=== PATIENT | female | born 1950 | race African-American/Black ===

== ENCOUNTER 2017-02-07 03:47 | Emergency (ER) | payer MEDICARE, OTHER ==
[~2017-02-07] VITALS: Ht 167.6 cm; Wt 81.6 kg
[~2017-02-07 03:47] MED LIST: ALBUTEROL SULF8.5 GM INH; ASPIRIN EC325 MG ORAL; ASPIRIN ORAL; AZITHROMYCIN250 MG ORAL; CAL MAG ZINC +1 EACH PO; CIPROFLOXACIN500 M2 ORAL; COREG12.5 MG ORAL; CYCLOBENZAPRINE10 MG ORAL; IBUPROFEN200 MG ORAL; IBUPROFEN600 MG ORAL; LISINOPRIL10 MG ORAL; OSCAL D500 MG GT; PREDNISONE20 MG ORAL; ROBITUSSIN DM5 ML ORAL; SIMVASTATIN20 MG ORAL; TRAMADOL HCL50 MG ORAL; ZOFRAN4 MG ORAL
[2017-02-07 04:05] VITALS: BP 171/66
[2017-02-07] MEDS ORDERED: HYDROmorphone 1 MG in NS 55 ML IV ONE (04:15)
[2017-02-07 04:47] LABS: KETONES,URINE NEGATIVE (NEGATIVE); LEUKOCYTE ESTERASE ,URINE 1+ (NEGATIVE); NITRITE,URINE NEGATIVE (NEGATIVE); PH,URINE 7 (4.5-8.0); PROTEIN,URINE 2+ (NEGATIVE); UROBILINOGEN,URINE NORMAL MG/DL (0.0-1.0)
[2017-02-07 04:56] LABS: BASOPHILS % (AUTO) 0.7 % (0.0-2.0); EOSINOPHILS % (AUTO) 0.9 % (0.0-3.0); LYMPHOCYTES % (AUTO) 19.6 % (20.0-45.0); MEAN CORPUSCULAR HEMOGLOBIN 31.4 PG (27.0-31.0); MEAN CORPUSCULAR HGB CONC 32.2 G/DL (32.0-36.0); MEAN CORPUSCULAR VOLUME 98 FL (80-99); MONOCYTES % (AUTO) 6.2 % (1.0-10.0); NEUTROPHILS % (AUTO) 72.5 % (45.0-75.0); PLATELET COUNT 262 K/UL (150-450); RED BLOOD COUNT 5.01 M/UL (4.20-5.40); RED CELL DISTRIBUTION WIDTH 12.7 % (11.6-14.8); WHITE BLOOD COUNT 9.8 K/UL (4.8-10.8)
[2017-02-07 05:00] VITALS: BP 160/57
[2017-02-07 05:01] LABS: APPEARANCE,URINE SLIGHTLY CLOUDY
[2017-02-07 05:02] LABS: BACTERIA,URINE FEW /HPF
[2017-02-07 05:03] LABS: AMORPHOUS SEDIMENT,UR FEW /LPF
[2017-02-07 05:18] LABS: ALBUMIN/GLOBULIN RATIO 1.2 (1.0-2.7); CALCIUM 9.9 mg/dL (8.6-10.2); CREATININE 1.3 mg/dL (0.5-0.9); GLOMERULAR FILTRATION RATE 50.1 mL/min (>60); TOTAL PROTEIN 7.9 g/dL (6.6-8.7)
[2017-02-07] MEDS ORDERED: ZOFRAN ODT4 MG ORAL (05:28)
--- NOTE | 2017-02-07 05:29 | Emergency Room Report ---
History of Present Illness General Chief Complaint: Nausea, Vomiting, and Diarrhea Source: Patient, EMS Present Illness HPI This is a 66-year-old female with no significant past medical history. She presents with chief complaint of vomiting. She get occasional vomiting which only lasts for an hour or so. They get better. This occurred couple days ago. This morning she woke up with vomiting and able to stop. Also some diarrhea. Denies any fever chills denies any abdominal pain. Nothing made it better. Unable to keep anything down. Allergies: Coded Allergies: CODEINE (Unverified Allergy, Unknown, 05/19/16) MORPHINE (Verified Allergy, Unknown, 05/19/16) PENICILLINS (Unverified Allergy, Unknown, 05/19/16) Uncoded Allergies: CODEIN (Allergy, Unknown, 05/19/16) PENACILLIN (Allergy, Unknown, 05/19/16) PENCILLIN (Allergy, Unknown, 02/07/17) Patient History Past Medical History: see triage record, old chart reviewed Past Surgical History: other Pertinent Family History: none Social History: Reports: drug use - Marijuana Now: No Immunizations: other Reviewed Nursing Documentation: PMH: Agreed, PSxH: Agreed Nursing Documentation-PMH Past Medical History: No History, Except For Hx Cardiac Problems: Yes - CAD Hx Hypertension: Yes Hx COPD: Yes Hx Cancer: No Hx Gastrointestinal Problems: No Hx Neurological Problems: No Review of Systems Eye: Denies: blurred vision, eye pain ENT: Denies: ear pain, nose congestion, throat swelling Respiratory: Denies: cough, shortness of breath Cardiovascular: Denies: chest pain, palpitations Gastrointestinal: Reports: diarrhea, nausea, vomiting, Denies: abdominal pain Musculoskeletal: Denies: back pain, joint pain Skin: Denies: rash Neurological: Denies: headache, numbness Endocrine: Denies: increased thirst, increased urine Hematologic/Lymphatic: Denies: easy bruising All Other Systems: negative except mentioned in HPI Physical Exam Vital Signs Date Time Temp Pulse Resp B/P Pulse Ox O2 Delivery O2 Flow Rate FiO2 02/07/17 03:39 96.8 77 16 149/60 98 Room Air vitals unremarkable Sp02 EP Interpretation: reviewed, normal General Appearance: well appearing, no apparent distress, alert Head: normocephalic, atraumatic Eyes: bilateral eye EOMI, bilateral eye PERRL ENT: hearing grossly normal, normal pharynx Neck: full range of motion, supple, no meningismus Respiratory: chest non-tender, lungs clear, normal breath sounds Cardiovascular #1: regular rate, rhythm, no murmur Gastrointestinal: normal bowel sounds, non tender, no mass, no organomegaly, no bruit, non-distended Musculoskeletal: back normal, gait/station normal, normal range of motion Neurologic: alert, oriented x3, responsive Psychiatric: mood/affect normal Skin: warm/dry Medical Decision Making Diagnostic Impression: Primary Impression: Nausea, vomiting, and diarrhea ER Course She presents with acute vomiting and diarrhea. She felt much better now. Able to keep things down. We'll discharge home. 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 No evidence of obstruction. No evidence of acute abdomen. Lab Results Impression labs unremarkable Last Vital Signs Date Time Temp Pulse Resp B/P Pulse Ox O2 Delivery O2 Flow Rate FiO2 02/07/17 05:00 60 17 160/57 100 Room Air 02/07/17 03:39 96.8 Status: improved Disposition: HOME, SELF-CARE Condition: Stable Scripts Ondansetron Odt* (ZOFRAN ODT*) 4 Mg Tab.rapdis 4 MG ORAL Q6H Y for Nausea & Vomiting, #15 TAB 0 Refills Prov: ROSARIO TAVARES M.D. 02/07/17 Referrals: NON PHYSICIAN (PCP) Patient Instructions: DIET, Vomiting or Diarrhea [6yr-Adult] Additional Instructions: Followup with your Dr. in 2 to 3 days. Return if worse. ROSARIO TAVARES M.D. Feb 07, 2017 05:29
[2017-02-07 05:40] VITALS: BP 137/50
== END 2017-02-07 06:00 | disposition home or self-care (01) ==
LOC: EDBD 03:47 → EMR 04:00
DX: R11.2 Nausea with vomiting, unspecified (principal); R19.7 Diarrhea, unspecified; Z88.6 Allergy status to analgesic agent; Z88.0 Allergy status to penicillin; F15.90 Other stimulant use, unspecified, uncomplicated; I10 Essential (primary) hypertension; J44.9 Chronic obstructive pulmonary disease, unspecified; I25.10 Atherosclerotic heart disease of native coronary artery without angina pectoris
CPT/HCPCS: 36415; 80053; 80300; 81003; 83690; 85025; 96374; 96375; 99284; J2405

== ENCOUNTER 2017-06-08 11:35 | Emergency (ER) | payer MEDICARE, OTHER ==
[~2017-06-08] VITALS: Ht 165.1 cm; Wt 77.1 kg
[~2017-06-08 11:35] MED LIST changes: +ZOFRAN ODT4 MG ORAL
[2017-06-08 12:33] LABS: APPEARANCE,URINE CLEAR; KETONES,URINE NEGATIVE (NEGATIVE); LEUKOCYTE ESTERASE ,URINE 2+ (NEGATIVE); NITRITE,URINE NEGATIVE (NEGATIVE); PH,URINE 7 (4.5-8.0); PROTEIN,URINE NEGATIVE (NEGATIVE); UROBILINOGEN,URINE NORMAL MG/DL (0.0-1.0)
[2017-06-08 12:49] LABS: BACTERIA,URINE FEW /HPF; SQUAMOUS EPITHELIAL CELL,UR FEW /LPF (NONE/OCC)
[2017-06-08] MEDS ORDERED: CEPHALEXIN500 MG ORAL (13:13)
[2017-06-08] MEDS ORDERED: PHENAZOPYRIDIN100 MG ORAL (13:13)
[2017-06-08 13:20] VITALS: BP 158/71
--- NOTE | 2017-06-08 15:08 | Emergency Room Report ---
History of Present Illness General Chief Complaint: Female Urogenital Problems Present Illness HPI The patient is a 67-year-old female presenting for increasing or frequency, dysuria, and back pain which began yesterday. She states that she frequently gets UTIs and this feels the same. Pain is a 5/10 burning sensation to the vaginal region with urination. She denies any vaginal discharge, hematuria, fever, chills Allergies: Coded Allergies: CODEINE (Unverified Allergy, Unknown, 05/19/16) MORPHINE (Verified Allergy, Unknown, 05/19/16) PENICILLINS (Unverified Allergy, Unknown, 05/19/16) Patient History Past Medical History: see triage record Pertinent Family History: none Now: No Reviewed Nursing Documentation: PMH: Agreed, PSxH: Agreed Nursing Documentation-PMH Hx Cardiac Problems: Yes - CAD Hx Hypertension: Yes Hx COPD: Yes Hx Cancer: No Hx Gastrointestinal Problems: No Hx Neurological Problems: No Review of Systems All Other Systems: negative except mentioned in HPI Physical Exam Vital Signs Date Time Temp Pulse Resp B/P Pulse Ox O2 Delivery O2 Flow Rate FiO2 06/08/17 11:58 97.3 52 16 173/80 98 Room Air Sp02 EP Interpretation: reviewed, normal General Appearance: no apparent distress, alert, GCS 15, non-toxic Head: normocephalic, atraumatic Eyes: bilateral eye PERRL, bilateral eye normal inspection ENT: hearing grossly normal, normal pharynx, no angioedema, normal voice Neck: full range of motion, supple/symm/no masses Gastrointestinal: soft, no mass, no guarding, tenderness - suprapubic Musculoskeletal: back normal, gait/station normal, normal range of motion, non- tender Neurologic: alert, oriented x3, responsive, motor strength/tone normal, sensory intact, speech normal Psychiatric: judgement/insight normal, memory normal, mood/affect normal, no suicidal/homicidal ideation Skin: normal color, no rash, warm/dry, well hydrated Medical Decision Making PA Attestation Dr. Talavera is my supervising physician. Patient management was discussed with my supervising physician Diagnostic Impression: Primary Impression: Pyelonephritis ER Course The patient is a 67-year-old female presenting for UTI symptoms Differential diagnosis considered but not limited to: UTI, BV, yeast infection, pyelonephritis, PID, among others PE: afebrile. NAD. Abdomen: Normal appearance. Non distended. No ecchymosis. Normal BS. TTP over suprapubic region only. No McBurney point tenderness. No guarding. No CVA tenderness Urinalysis is consistent with urinary tract infection The patient discharged home with a prescription for keflex and is given ER precautions. Laboratory Tests Test 06/08/17 12:20 Urine Color Pale yellow Urine Appearance Clear Urine pH 7 (4.5-8.0) Urine Specific [place] 1.010 (1.005-1.035) Urine Protein Negative (NEGATIVE) Urine Glucose (UA) Negative (NEGATIVE) Urine Ketones Negative (NEGATIVE) Urine Occult Blood Negative (NEGATIVE) Urine Nitrite Negative (NEGATIVE) Urine Bilirubin Negative (NEGATIVE) Urine Urobilinogen Normal MG/DL (0.0-1.0) Urine Leukocyte Esterase 2+ (NEGATIVE) H Urine RBC 2-4 /HPF (0 - 2) H Urine WBC 5-10 /HPF (0 - 2) H Urine Squamous Epithelial Cells Few /LPF (NONE/OCC) Urine Bacteria Few /HPF (NONE) Lab Results Impression WBC and LE with few bacteria Last Vital Signs Date Time Temp Pulse Resp B/P Pulse Ox O2 Delivery O2 Flow Rate FiO2 06/08/17 13:20 97.6 60 16 158/71 98 Room Air Status: improved Disposition: HOME, SELF-CARE Condition: Improved Scripts Cephalexin* (KEFLEX*) 500 Mg Capsule 500 MG ORAL EVERY 6 HOURS, #28 CAP Prov: JOSÉ LUIS SOSA P.A. 06/08/17 Phenazopyridine Hcl* (PYRIDIUM*) 100 Mg Tablet 100 MG ORAL THREE TIMES A DAY, #6 TAB Prov: JOSÉ LUIS SOSA P.A. 06/08/17 Patient Instructions: Urinary Tract Infection Additional Instructions: I discussed my findings with the patient. All questions and concerns have been answered. Treatment and medication compliance have been addressed. I advised the patient that they need to follow up with PMD in 3-5 days. Return to ED if symptoms worsen, new symptoms arise, or if needed for any reason. Patient verbalized understanding of discharge instructions. JOSÉ LUIS SOSA Jun 08, 2017 15:08
== END 2017-06-08 13:20 | disposition home or self-care (01) ==
LOC: EMR 12:20
DX: N12 Tubulo-interstitial nephritis, not specified as acute or chronic (principal); I25.10 Atherosclerotic heart disease of native coronary artery without angina pectoris; I10 Essential (primary) hypertension; J44.9 Chronic obstructive pulmonary disease, unspecified
CPT/HCPCS: 81003; 99284

== ENCOUNTER 2017-08-27 09:26 | Emergency (ER) | payer MEDICARE, OTHER ==
[~2017-08-27] VITALS: Ht 162.6 cm; Wt 75.3 kg
[~2017-08-27 09:26] MED LIST changes: +CEPHALEXIN500 MG ORAL; +PHENAZOPYRIDIN100 MG ORAL
[2017-08-27] MEDS ORDERED: VITAMIN E400 UNI5 PO (09:36)
--- NOTE | 2017-08-27 09:54 | Emergency Room Report ---
History of Present Illness General Chief Complaint: General Complaint Source: Patient Present Illness HPI Patient presents with complaints of nausea Symptoms started yesterday she reports decreased oral intake yesterday she developed a mild headache denies any chest pain or shortness of breath patient complains of chills denies any diarrhea She reports spending time outside in the garden 3 days ago for an extended period time Patient saw her marine engineering consultant 2 days ago Was doing well at that time and now presents with complaints of chills Allergies: Coded Allergies: CODEINE (Unverified Allergy, Unknown, 05/19/16) MORPHINE (Verified Allergy, Unknown, 05/19/16) PENICILLINS (Unverified Allergy, Unknown, 05/19/16) Patient History Past Medical History: see triage record Pertinent Family History: none Reviewed Nursing Documentation: PMH: Agreed, PSxH: Agreed Nursing Documentation-PMH Past Medical History: No History, Except For Hx Cardiac Problems: Yes - CAD Hx Hypertension: Yes Hx Pacemaker: No Hx Asthma: No Hx COPD: Yes Hx Diabetes: No Hx Cancer: No Hx Gastrointestinal Problems: No Hx Dialysis: No History Of Psychiatric Problem: No Hx Neurological Problems: No Hx Cerebrovascular Accident: No Hx Seizures: No Review of Systems All Other Systems: negative except mentioned in HPI Physical Exam Vital Signs Date Time Temp Pulse Resp B/P (MAP) Pulse Ox O2 Delivery O2 Flow Rate FiO2 08/27/17 09:32 98.1 74 16 158/83 98 Room Air Sp02 EP Interpretation: reviewed, normal General Appearance: well appearing, no apparent distress Head: normocephalic, atraumatic Eyes: bilateral eye PERRL, bilateral eye EOMI ENT: hearing grossly normal, normal pharynx, TMs + canals normal, uvula midline Neck: full range of motion, supple, no meningismus, no bony tend Respiratory: lungs clear, normal breath sounds, no rhonchi, no respiratory distress, no retraction, no accessory muscle use Cardiovascular #1: normal peripheral pulses, regular rate, rhythm, no edema, no gallop, no JVD, no murmur Gastrointestinal: normal bowel sounds, non tender, soft, no mass, no organomegaly, non-distended, no guarding, no hernia, no pulsatile mass, no rebound Genitourinary: no CVA tenderness Musculoskeletal: normal inspection Neurologic: oriented x3, responsive, development officer III-XII nml as tested, motor strength/ tone normal, sensory intact Psychiatric: mood/affect normal Skin: normal color, no rash, warm/dry, palpation normal Lymphatic: normal inspection, no adenopathy Medical Decision Making Diagnostic Impression: Primary Impression: Vomiting Additional Impression: Diarrhea ER Course With the history exam and presentation, multiple differentials considered, including but not limited to appendicitis, gastritis, cholecystitis, diverticulitis Infectious pathology also entertained Patient although is has a very benign medical evaluation abdomen is soft patient was provided with anti-emetic oral medication I did not feel the patient met criteria for further IV examination And will have close initial outpatient followup Last Vital Signs Date Time Temp Pulse Resp B/P (MAP) Pulse Ox O2 Delivery O2 Flow Rate FiO2 08/27/17 09:32 98.1 74 16 158/83 98 Room Air Status: improved Disposition: HOME, SELF-CARE Condition: Improved Scripts Ondansetron Odt* (ZOFRAN ODT*) 4 Mg Tab.rapdis 4 MG ORAL Q6H Y for Nausea & Vomiting, #20 TAB 0 Refills Prov: SUSAN MORENO D.O. 08/27/17 Referrals: NOT CHOSEN IPA/MD,REFERRING (PCP) Additional Instructions: Patient is provided with the discharge instructions notified to follow up with primary doctor in the next 2-3 days otherwise return to the er with any worsening symptoms. Please note that this report is being documented using [employer] technology. This can lead to erroneous entry secondary to incorrect interpretation by the dictating instrument. SUSAN MORENO D.O. Aug 27, 2017 09:54
--- NOTE | 2017-08-27 09:54 | Emergency Room Report ---
History of Present Illness General Chief Complaint: General Complaint Source: Patient Present Illness HPI Patient presents with complaints of nausea Symptoms started yesterday she reports decreased oral intake yesterday she developed a mild headache denies any chest pain or shortness of breath patient complains of chills denies any diarrhea She reports spending time outside in the garden 3 days ago for an extended period time Patient saw her control room agent 2 days ago Was doing well at that time and now presents with complaints of chills Allergies: Coded Allergies: CODEINE (Unverified Allergy, Unknown, 05/19/16) MORPHINE (Verified Allergy, Unknown, 05/19/16) PENICILLINS (Unverified Allergy, Unknown, 05/19/16) Patient History Past Medical History: see triage record Pertinent Family History: none Reviewed Nursing Documentation: PMH: Agreed, PSxH: Agreed Nursing Documentation-PMH Past Medical History: No History, Except For Hx Cardiac Problems: Yes - CAD Hx Hypertension: Yes Hx Pacemaker: No Hx Asthma: No Hx COPD: Yes Hx Diabetes: No Hx Cancer: No Hx Gastrointestinal Problems: No Hx Dialysis: No History Of Psychiatric Problem: No Hx Neurological Problems: No Hx Cerebrovascular Accident: No Hx Seizures: No Review of Systems All Other Systems: negative except mentioned in HPI Physical Exam Vital Signs Date Time Temp Pulse Resp B/P (MAP) Pulse Ox O2 Delivery O2 Flow Rate FiO2 08/27/17 09:32 98.1 74 16 158/83 98 Room Air Sp02 EP Interpretation: reviewed, normal General Appearance: well appearing, no apparent distress Head: normocephalic, atraumatic Eyes: bilateral eye PERRL, bilateral eye EOMI ENT: hearing grossly normal, normal pharynx, TMs + canals normal, uvula midline Neck: full range of motion, supple, no meningismus, no bony tend Respiratory: lungs clear, normal breath sounds, no rhonchi, no respiratory distress, no retraction, no accessory muscle use Cardiovascular #1: normal peripheral pulses, regular rate, rhythm, no edema, no gallop, no JVD, no murmur Gastrointestinal: normal bowel sounds, non tender, soft, no mass, no organomegaly, non-distended, no guarding, no hernia, no pulsatile mass, no rebound Genitourinary: no CVA tenderness Musculoskeletal: normal inspection Neurologic: oriented x3, responsive, news agent III-XII nml as tested, motor strength/ tone normal, sensory intact Psychiatric: mood/affect normal Skin: normal color, no rash, warm/dry, palpation normal Lymphatic: normal inspection, no adenopathy Medical Decision Making Diagnostic Impression: Primary Impression: Vomiting Additional Impression: Diarrhea ER Course With the history exam and presentation, multiple differentials considered, including but not limited to appendicitis, gastritis, cholecystitis, diverticulitis Infectious pathology also entertained Patient although is has a very benign medical evaluation abdomen is soft patient was provided with anti-emetic oral medication I did not feel the patient met criteria for further IV examination And will have close initial outpatient followup Last Vital Signs Date Time Temp Pulse Resp B/P (MAP) Pulse Ox O2 Delivery O2 Flow Rate FiO2 08/27/17 09:32 98.1 74 16 158/83 98 Room Air Status: improved Disposition: HOME, SELF-CARE Condition: Improved Scripts Ondansetron Odt* (ZOFRAN ODT*) 4 Mg Tab.rapdis 4 MG ORAL Q6H Y for Nausea & Vomiting, #20 TAB 0 Refills Prov: SUSAN MORENO D.O. 08/27/17 Referrals: NOT CHOSEN IPA/MD,REFERRING (PCP) Additional Instructions: Patient is provided with the discharge instructions notified to follow up with primary doctor in the next 2-3 days otherwise return to the er with any worsening symptoms. Please note that this report is being documented using [employer] technology. This can lead to erroneous entry secondary to incorrect interpretation by the dictating instrument. SUSAN MORENO D.O. Aug 27, 2017 09:54
--- NOTE | 2017-08-27 09:54 | Emergency Room Report ---
History of Present Illness General Chief Complaint: General Complaint Source: Patient Present Illness HPI Patient presents with complaints of nausea Symptoms started yesterday she reports decreased oral intake yesterday she developed a mild headache denies any chest pain or shortness of breath patient complains of chills denies any diarrhea She reports spending time outside in the garden 3 days ago for an extended period time Patient saw her tank car mechanic 2 days ago Was doing well at that time and now presents with complaints of chills Allergies: Coded Allergies: CODEINE (Unverified Allergy, Unknown, 05/19/16) MORPHINE (Verified Allergy, Unknown, 05/19/16) PENICILLINS (Unverified Allergy, Unknown, 05/19/16) Patient History Past Medical History: see triage record Pertinent Family History: none Reviewed Nursing Documentation: PMH: Agreed, PSxH: Agreed Nursing Documentation-PMH Past Medical History: No History, Except For Hx Cardiac Problems: Yes - CAD Hx Hypertension: Yes Hx Pacemaker: No Hx Asthma: No Hx COPD: Yes Hx Diabetes: No Hx Cancer: No Hx Gastrointestinal Problems: No Hx Dialysis: No History Of Psychiatric Problem: No Hx Neurological Problems: No Hx Cerebrovascular Accident: No Hx Seizures: No Review of Systems All Other Systems: negative except mentioned in HPI Physical Exam Vital Signs Date Time Temp Pulse Resp B/P (MAP) Pulse Ox O2 Delivery O2 Flow Rate FiO2 08/27/17 09:32 98.1 74 16 158/83 98 Room Air Sp02 EP Interpretation: reviewed, normal General Appearance: well appearing, no apparent distress Head: normocephalic, atraumatic Eyes: bilateral eye PERRL, bilateral eye EOMI ENT: hearing grossly normal, normal pharynx, TMs + canals normal, uvula midline Neck: full range of motion, supple, no meningismus, no bony tend Respiratory: lungs clear, normal breath sounds, no rhonchi, no respiratory distress, no retraction, no accessory muscle use Cardiovascular #1: normal peripheral pulses, regular rate, rhythm, no edema, no gallop, no JVD, no murmur Gastrointestinal: normal bowel sounds, non tender, soft, no mass, no organomegaly, non-distended, no guarding, no hernia, no pulsatile mass, no rebound Genitourinary: no CVA tenderness Musculoskeletal: normal inspection Neurologic: oriented x3, responsive, commodity director III-XII nml as tested, motor strength/ tone normal, sensory intact Psychiatric: mood/affect normal Skin: normal color, no rash, warm/dry, palpation normal Lymphatic: normal inspection, no adenopathy Medical Decision Making Diagnostic Impression: Primary Impression: Vomiting Additional Impression: Diarrhea ER Course With the history exam and presentation, multiple differentials considered, including but not limited to appendicitis, gastritis, cholecystitis, diverticulitis Infectious pathology also entertained Patient although is has a very benign medical evaluation abdomen is soft patient was provided with anti-emetic oral medication I did not feel the patient met criteria for further IV examination And will have close initial outpatient followup Last Vital Signs Date Time Temp Pulse Resp B/P (MAP) Pulse Ox O2 Delivery O2 Flow Rate FiO2 08/27/17 09:32 98.1 74 16 158/83 98 Room Air Status: improved Disposition: HOME, SELF-CARE Condition: Improved Scripts Ondansetron Odt* (ZOFRAN ODT*) 4 Mg Tab.rapdis 4 MG ORAL Q6H Y for Nausea & Vomiting, #20 TAB 0 Refills Prov: SUSAN MORENO D.O. 08/27/17 Referrals: NOT CHOSEN IPA/MD,REFERRING (PCP) Additional Instructions: Patient is provided with the discharge instructions notified to follow up with primary doctor in the next 2-3 days otherwise return to the er with any worsening symptoms. Please note that this report is being documented using [employer] technology. This can lead to erroneous entry secondary to incorrect interpretation by the dictating instrument. SUSAN MORENO D.O. Aug 27, 2017 09:54
[2017-08-27 10:22] VITALS: BP 158/83
[2017-08-27] MEDS ORDERED: ZOFRAN ODT4 MG ORAL (10:33)
[2017-08-27 10:54] VITALS: BP 156/82
== END 2017-08-27 10:55 | disposition home or self-care (01) ==
LOC: EMR 09:46
DX: R11.2 Nausea with vomiting, unspecified (principal); I10 Essential (primary) hypertension; R19.7 Diarrhea, unspecified; I25.10 Atherosclerotic heart disease of native coronary artery without angina pectoris; J44.9 Chronic obstructive pulmonary disease, unspecified
CPT/HCPCS: 99282

== ENCOUNTER 2018-03-19 06:16 | Inpatient (IN) | payer MEDICARE, OTHER ==
[~2018-03-19] VITALS: Ht 165.1 cm; Wt 61.2 kg
[~2018-03-19 06:16] MED LIST changes: +VITAMIN E400 UNI5 PO
[2018-03-19 06:57] VITALS: BP 125/70
[2018-03-19 08:00] VITALS: BP 149/65
[2018-03-19 09:36] LABS: BASOPHILS % (AUTO) 1.1 % (0.0-2.0); EOSINOPHILS % (AUTO) 0.2 % (0.0-3.0); HEMATOCRIT 38.6 % (37.0-47.0); HEMOGLOBIN 12.6 G/DL (12.0-16.0); LYMPHOCYTES % (AUTO) 16.2 % (20.0-45.0); MEAN CORPUSCULAR VOLUME 96 FL (80-99); MONOCYTES % (AUTO) 5.6 % (1.0-10.0); NEUTROPHILS % (AUTO) 76.9 % (45.0-75.0); PLATELET COUNT 256 K/UL (150-450); RED BLOOD COUNT 4.02 M/UL (4.20-5.40); WHITE BLOOD COUNT 9.1 K/UL (4.8-10.8)
--- NOTE | 2018-03-19 09:44 | Consultation ---
History of Present Illness General Date patient seen: Mar 19, 2018 Present Illness HPI 68 year old lady with hx of CAD, s/p stent, mitral regurgitation was taken to [facility] with CC of sudden onset of SOB, Pt was diagnosed to have acute CHF. After initial treatment with diuretics, she was transferred this am to [facility] for further treatment. Pt had a cardiac cath last month at [facility] and waiting for mitral valve replacement. No fever , chills reproted. Allergies: Coded Allergies: CODEINE (Unverified Allergy, Unknown, 05/19/16) MORPHINE (Verified Allergy, Unknown, 05/19/16) PENICILLINS (Unverified Allergy, Unknown, 05/19/16) Medication History Scheduled Aspirin* (Aspirin Ec*), 325 MG ORAL DAILY, (Reported) Ca Carb/Vit D3/Mag Ox/Zn Oxide (Titi Mag Zinc + D Tablet), 1 EACH PO DAILY, ( Reported) Carvedilol (Coreg), 12.5 MG ORAL EVERY 12 HOURS, (Reported) Cephalexin* (Keflex*), 500 MG ORAL EVERY 6 HOURS Lisinopril* (Lisinopril*), 20 MG ORAL DAILY, (Reported) Phenazopyridine Hcl* (Pyridium*), 100 MG ORAL THREE TIMES A DAY Simvastatin (Zocor), 20 MG ORAL BEDTIME, (Reported) Vitamin E Mixed (Vitamin E), Unknown Dose PO DAILY, (Reported) Scheduled PRN Ondansetron Odt* (Zofran Odt*), 4 MG ORAL Q6H PRN for Nausea & Vomiting Ondansetron Odt* (Zofran Odt*), 4 MG ORAL Q6H PRN for Nausea & Vomiting Patient History Healthcare decision maker N Resuscitation status Advanced Directive on File Past Medical/Surgical History Past Medical/Surgical History: (1) COPD (chronic obstructive pulmonary disease) (2) Current smoker (3) CHF (congestive heart failure) (4) Pulmonary edema Review of Systems Constitutional: Reports: no symptoms Respiratory: Reports: shortness of breath, wheezing Physical Exam General Appearance: WD/WN, no apparent distress Lines, tubes and drains: peripheral Neck: non-tender, normal alignment, supple Respiratory/Chest: crackles/rales Breasts: no masses Cardiovascular/Chest: normal peripheral pulses, normal rate Abdomen: normal bowel sounds, non tender Extremities: normal range of motion Skin Exam: normal pigmentation Last 24 Hour Vital Signs Date Time Temp Pulse Resp B/P (MAP) Pulse Ox O2 Delivery O2 Flow Rate FiO2 03/19/18 06:57 98.1 61 20 125/70 Nasal Cannula 2.0 98 98.1 Laboratory Tests Test 03/19/18 08:50 White Blood Count Pending Red Blood Count Pending Hemoglobin Pending Hematocrit Pending Mean Corpuscular Volume Pending Mean Corpuscular Hemoglobin Pending Mean Corpuscular Hemoglobin Concent Pending Red Cell Distribution Width Pending Platelet Count Pending Mean Platelet Volume Pending Neutrophils (%) (Auto) Pending Lymphocytes (%) (Auto) Pending Monocytes (%) (Auto) Pending Eosinophils (%) (Auto) Pending Basophils (%) (Auto) Pending Sodium Level Pending Potassium Level Pending Chloride Level Pending Carbon Dioxide Level Pending Blood Urea Nitrogen Pending Creatinine Pending Estimat Glomerular Filtration Rate Pending Glucose Level Pending Calcium Level Pending Total Bilirubin Pending Aspartate Amino Transf (AST/SGOT) Pending Alanine Aminotransferase (ALT/SGPT) Pending Alkaline Phosphatase Pending Total Protein Pending Albumin Pending Globulin Pending Medications Current Medications Medications (Trade) Dose Ordered Sig/Bobby Route PRN Reason Start Time Stop Time Status Last Admin Dose Admin Acetaminophen (Tylenol) 650 mg Q4H PRN ORAL Fever 03/19/18 09:45 04/18/18 09:44 UNV Albuterol/ Ipratropium (Albuterol/ Ipratropium) 3 ml EVERY 4 HOURS PRN HHN Shortness of Breath 03/19/18 09:45 03/24/18 09:44 UNV Carvedilol (Coreg) 12.5 mg EVERY 12 HOURS ORAL 03/19/18 21:00 04/18/18 20:59 UNV Dextrose (Dextrose 50%) STAT PRN IV Hypoglycemia 03/19/18 09:45 04/18/18 09:44 UNV Furosemide (Lasix) 40 mg EVERY 8 HOURS IV 03/19/18 14:00 04/18/18 13:59 UNV Heparin Sodium (Porcine) (Heparin 5000 units/ml) 5,000 units EVERY 12 HOURS SUBQ 03/19/18 21:00 04/18/18 20:59 UNV Lisinopril (Prinivil) 20 mg DAILY ORAL 03/20/18 09:00 04/19/18 08:59 UNV Ondansetron HCl (Zofran) 4 mg Q6H PRN IVP Nausea & Vomiting 03/19/18 09:45 04/18/18 09:44 UNV Ondansetron HCl (Zofran) 4 mg Q6H PRN IVP Nausea & Vomiting 03/19/18 09:45 04/18/18 09:44 UNV Polyethylene Glycol (Miralax) 17 gm DAILYPRN PRN ORAL Constipation 03/19/18 09:45 04/18/18 09:44 UNV Temazepam (Restoril) 15 mg HSPRN PRN ORAL Insomnia 03/19/18 09:45 03/26/18 09:44 UNV Assessment/Plan Problem List: (1) CHF (congestive heart failure) ICD Codes: I50.9 - Heart failure, unspecified SNOMED: 42829656 (2) Mitral regurgitation ICD Codes: I34.0 - Nonrheumatic mitral (valve) insufficiency SNOMED: 93509225 (3) CAD (coronary artery disease) ICD Codes: I25.10 - Atherosclerotic heart disease of [place] coronary artery without angina pectoris SNOMED: 33781813 (4) Pulmonary edema (5) COPD (chronic obstructive pulmonary disease) ICD Codes: J44.9 - Chronic obstructive pulmonary disease, unspecified SNOMED: 78574403 (6) Current smoker ICD Codes: F17.200 - Nicotine dependence, unspecified, uncomplicated SNOMED: 17873142 Assessment/Plan diuretics check echo check BNP cardiology to see check intake and output titrate cardiac meds. Dane Tamez MD Mar 19, 2018 09:44
[2018-03-19] MEDS ORDERED: Albuterol/Ipratropium 3ml neb HHN PRN (09:45)
[2018-03-19] MEDS ORDERED: Miralax 17gm pkt ORAL PRN (09:45)
[2018-03-19 09:53] LABS: ANION GAP 10 mmol/L (5-15); BLOOD UREA NITROGEN 20 mg/dL (7-18); CALCIUM 8.9 MG/DL (8.5-10.1); CARBON DIOXIDE 25 MMOL/L (21-32); CHLORIDE 106 MMOL/L (98-107); CREATININE 1.2 MG/DL (0.55-1.30); POTASSIUM 3.7 MMOL/L (3.5-5.1); SODIUM 141 MMOL/L (136-145)
[2018-03-19 09:57] LABS: ALANINE AMINOTRANSFERASE 23 U/L (12-78); ALBUMIN 3.6 G/DL (3.4-5.0); ALBUMIN/GLOBULIN RATIO 0.9 (1.0-2.7); ALKALINE PHOSPHATASE 54 U/L (46-116); ASPARTATE AMINO TRANSFERASE 24 U/L (15-37); BILIRUBIN,TOTAL 0.6 MG/DL (0.2-1.0)
[2018-03-19] MEDS ORDERED: Lisinopril 20mg tab ORAL SCH (10:30)
[2018-03-19 12:00] VITALS: BP 146/66
--- NOTE | 2018-03-19 13:26 | History & Physical ---
History and Physical History & Physicial Dictated for Int Med- Dr Churchill [id number]. Pee Keen MD Mar 19, 2018 13:26
[2018-03-19] MEDS ORDERED: Carvedilol 12.5mg tab ORAL SCH (21:00)
[2018-03-19] MEDS ORDERED: Heparin 5000 units/ml inj SUBQ SCH (21:00)
--- NOTE | 2018-03-19 21:16 | History and Physical Report ---
DATE OF ADMISSION: 03/19/2018 CHIEF COMPLAINT: The patient is a 68-year-old female, who presents with complaint of shortness of breath. HISTORY OF PRESENT ILLNESS: It began yesterday, 03/18/2018. The patient began to experience shortness of breath. This worsened over the course of the day. The patient states last night when she went to bed, she was unable to lie flat or able to sleep. The patient called the EMS. The patient was transported to [facility] Emergency Room. The patient was transferred to [facility] for insurance purposes. An initial BNP at [facility] was 1200. The patient is admitted for shortness of breath and acute exacerbation of congestive heart failure. REVIEW OF SYSTEMS: CONSTITUTIONAL: The patient denies weight loss or weight gain. The patient denies fevers or chills. HEENT: The patient denies ear or throat pain. The patient denies headache. CARDIOVASCULAR: The patient denies palpitations or chest pain. CHEST: The patient complains of shortness of breath as above. The patient denies wheezes or cough. ABDOMEN: The patient denies nausea, vomiting, diarrhea, or constipation. GENITOURINARY: The patient denies dysuria or increased frequency of urination. NEUROMUSCULAR: The patient denies seizures or generalized weakness. PAST MEDICAL HISTORY: Significant for: 1. Congestive heart failure. 2. Coronary artery disease, status post stent placement x2. 3. History of myocardial infarction in 2011. 4. Mitral valve regurgitation. 5. Hypercholesterolemia. PAST SURGICAL HISTORY: Significant for: 1. Cardiac catheterization in 2009 with stent placement x2. 2. Cardiac catheterization in December or January 2018. CURRENT MEDICATIONS: 1. Aspirin 325 mg one tablet p.o. daily. 2. Calcium with vitamin D one tablet p.o. twice daily. 3. Carvedilol 25 mg one tablet p.o. twice daily. 4. Lasix 20 mg p.o. daily. 5. Isosorbide mononitrate 60 mg one-half tablet p.o. q.a.m. 6. Lisinopril 20 mg p.o. twice daily. 7. Nitroglycerin sublingual p.r.n. chest pain. 8. Potassium chloride 10 mEq one tablet p.o. daily. 9. Simvastatin 20 mg p.o. daily. 10. Vitamin E 400 units p.o. daily. ALLERGIES: 1. Penicillin which causes " yeast infection." 2. Morphine which causes "nausea." SOCIAL HISTORY: The patient is from her . The patient lives alone. The patient admits to tobacco use of one pack per day. The patient admits to rare alcohol use. PHYSICAL EXAMINATION: VITAL SIGNS: Temperature 98.1 degrees, respirations 20, pulse 61, blood pressure 125/70. GENERAL: The patient is a well-developed and well-nourished female, in no apparent distress. HEENT: Pupils equal and responsive to light and accommodation. Extraocular movements are intact. NECK: Supple. No lymphadenopathy. CHEST: Crackles one third of the way up bilateral bases, otherwise clear to auscultation without wheezes or rales. CARDIOVASCULAR: Irregular rhythm. Regular rate. S1 and S2 normal without murmurs, rubs, or gallops. ABDOMEN: Soft, nontender, nondistended. Positive bowel sounds. No evidence of hepatosplenomegaly. Currently, no rebound or guarding noted. EXTREMITIES: Negative for clubbing, cyanosis, or edema. RECTAL: Refused. GENITAL: Refused. NEUROLOGIC: Cranial nerves II through XII are grossly intact without focal deficits. Motor strength is 5/5 bilaterally intact. Deep tendon reflexes are 2+, plantar. LABORATORY STUDIES: From [place], WBC 7.2, hemoglobin 12.7, hematocrit 38.1, platelets 248,000. Sodium 138, potassium 3.7, chloride 106, CO2 21, BUN 16, creatinine 1.31, glucose 141. Troponin less than 0.02. BNP elevated at 1201. Chest x-ray showed pulmonary vascular congestion consistent with congestive heart failure. ASSESSMENT: This is a 68-year-old female with: 1. Acute on chronic congestive heart failure. 2. Coronary artery disease. 3. Hypertension. 4. Mitral valve regurgitation. 5. Hypercholesterolemia. TREATMENT: 1. Congestive heart failure. Cardiology consultation is pending. An echocardiogram is pending. Serial troponin levels will be performed to rule out acute myocardial infarction. We will follow recommendation of Cardiology. 2. Hypertension. Continue Coreg and lisinopril as above. 3. Mitral valve regurgitation. 4. Hypercholesterolemia. Continue simvastatin as above. Pee Keen, M.D. DR: Zofia JOB#: [id number] CC:
[2018-03-20] MEDS ORDERED: Lisinopril 20mg tab ORAL SCH (09:00)
--- NOTE | 2018-03-20 16:34 | Cardiology Report ---
APPROVED REPORT EXAM: Two-dimensional and M-mode echocardiogram with Doppler and color Doppler. INDICATION Left ventricular function M-Mode DIMENSIONS IVSd0.9 (0.7-1.1cm)Left Atrium (MM)4.8 (1.6-4.0cm) LVDd5.3 (3.5-5.6cm)Aortic Root2.5 (2.0-3.7cm) PWd1.1 (0.7-1.1cm)Aortic Cusp Exc.1.7 (1.5-2.0cm) LVDs3.7 (2.5-4.0cm) PWs1.0 cm Normal left ventricular chamber size, systolic function and wall motion. Left ventricular ejection fraction estimated to be 55-60%. No evidence of left ventricular hypertrophy. No evidence of pericardial or pleural effusion. Right cardiac chamber sizes are within normal limits. Moderate left atrial enlargement by 2D. Focal aortic valve sclerosis with adequate cusp excursion. Thickened mitral valve leaflets with normal excursion. Mild mitral annulus and aortic root calcification. Pulmonic valve not well visualized. Normal tricuspid valve structure. IVC is normal in size and collapsible with respiration. A color flow and spectral Doppler study was performed and revealed: No aortic regurgitation. Severe eccentric mitral regurgitation. Normal mitral diastolic function. No tricuspid regurgitation.
--- NOTE | 2018-03-20 16:48 | Cardiology Report ---
APPROVED REPORT EKG Measurement Heart [id number] Sinus bradycardia Incomplete left bundle branch block Borderline ECG
--- NOTE | 2018-03-22 08:23 | Discharge Summary ---
Discharge Summary Discharge Summary _ DATE OF ADMISSION: 03/19/2018 DATE OF DISCHARGE: 03/19/2018. Patient signed AGAINST MEDICAL ADVICE REASON FOR ADMISSION: [] 68 years old female with past medical history significant for CHF, coronary artery disease status post stenting 2 in 2009, mitral valve regurgitation, history of [place] 2011, hypercholesterolemia, COPD, current smoker, presented to initially to [facility] emergency department for shortness of breath. She reported unable to lay flat closely. Initial proBNP at [facility] was 1200. Troponin was negative. No leukocytosis stable hemoglobin and hematocrit , stable renal parameters stable electrolytes, creatinine 1.3. Chest x-ray revealed pulmonary vascular congestion consistent with congestive heart failure. Patient was transferred to [facility] for insurance purposes with diagnosis acute CHF exacerbation, coronary artery disease, hypertension, mitral valve regurgitation, hypercholesterolemia, COPD, current smoker.. CONSULTANTS: pulmonary Dr. Tamez [facility] COURSE: Patient admitted to telemetry floor. Patient started on intravenous diuretics. Cardiorenal parameters and volumes were closely monitored. Cardiology consult was requested. Echocardiogram revealed preserved ejection fraction of 55-60% and evidence of severe mitral regurgitation. Blood pressure was managed with beta guevara and AGUSTIN inhibitor and remained stable. Statin was continued along with aspirin. Serial troponin were ordered to rule out [place]. First troponin slightly elevated 0.121, but patient had no cardiac complaints at that time. Telemetry revealed no acute ischemic changes. DVT prophylaxis provided. Supplemental oxygen provided as needed to keep pulse oximetry above 92%. Pulmonary toilet was on standby as needed. Patient was counseled on smoking cessation. Patient decided to leave AGAINST MEDICAL ADVICE. The risks and consequences of signing against medical advice were discussed with the patient. Patient verbalized understanding, signed the form and left, accompanied by her daughter FINAL DIAGNOSES: Acute on chronic CHF exacerbation Coronary artery disease status, post stent placement 2 Hypertension Severe mitral valve regurgitation Hypercholesterolemia COPD Current smoking I have been assigned to dictate discharge summary for this account. I was not involved in the patient's management. aRnda Burgos NP Mar 22, 2018 08:23
== END 2018-03-19 13:20 | disposition left against medical advice (07) | DRG 293 ==
LOC: 2E 06:16
DX: I50.9 Heart failure, unspecified (principal); I25.10 Atherosclerotic heart disease of native coronary artery without angina pectoris; Z95.5 Presence of coronary angioplasty implant and graft; Z72.0 Tobacco use; I34.0 Nonrheumatic mitral (valve) insufficiency; E78.00 Pure hypercholesterolemia, unspecified; I25.2 Old myocardial infarction; J44.9 Chronic obstructive pulmonary disease, unspecified
CPT/HCPCS: 36415; 80053; 84484; 85025; 93005; 93306; 93970